=== PATIENT | female | born 1945 | race Caucasian/White ===

== ENCOUNTER 2020-10-31 20:15 | Emergency (ER) | payer OTHER ==
[~2020-10-31] VITALS: Ht 162.6 cm; Wt 90.3 kg
[~2020-10-31 20:15] MED LIST: METOPROLOL SUCC50 MG PO; NORCO 5-325 TA1 EACH PO; NORVASC5 MG PO
[2020-10-31] MEDS ORDERED: XARELTO20 MG PO (20:34)
[2020-10-31] MEDS ORDERED: PRINIVIL20 M1 PO (20:35)
[2020-10-31 20:37] LABS: URINE BILIRUBIN NEGATIVE (Negative); URINE BLOOD NEGATIVE (Negative); URINE CLARITY CLEAR; URINE COLOR YELLOW; URINE GLUCOSE-RANDOM* NEGATIVE (Negative); URINE KETONES NEGATIVE (Negative); URINE LEUKOCYTES-REFLEX TRACE (Negative); URINE NITRITE-REFLEX NEGATIVE (Negative); URINE PROTEIN (DIPSTICK) NEGATIVE (Negative); URINE UROBILINOGEN 0.2 E.U./dl (0.2-1.0)
[2020-10-31] MEDS ORDERED: CLEOCIN HCL300 MG PO (20:59)
[2020-10-31] MEDS ORDERED: NORCO7.5 PO (20:59)
[2020-10-31 21:16] VITALS: BP 157/77
--- NOTE | 2020-11-01 07:14 | EKG ---
[address] [address] ELECTROCARDIOGRAM REPORT Name: LEDAJAYYBRANDI GAUTAM Room #: DEP [facility]#: [id number] Admission: 10/31/20 Attend Phys: Discharge: 10/31/20 Date of : 49 Report #: [id number] [facility] ED Test Date: 2020-10-31 Test Time: 20:33:02 Pat Name: JAYY TOMPKINS Department: Room: Gender: F Message Broker Developer: JOAQUIN : 1945 Requested By: Ruddy Andrade Order Number: [id number] MD: Bart Garcia Measurements Intervals [place] Rate: 79 P: 53 [place]: 150 QRS: -25 QRSD: 90 T: 25 QT: 359 QTc: 412 Interpretive Statements Sinus rhythm Inferior infarct, old No previous ECG available for comparison Electronically Signed On 11-01-2020 7:14:41 CDT by Bart Garcia [email or web address] <ELECTRONICALLY SIGNED> By: Bart Garcia MD, [facility] 11/01/20 0714 32 32 Bart Garcia MD, FACC /EPI
== END 2020-10-31 21:10 | disposition home or self-care (01) ==
LOC: ER 20:15
PROVIDERS: Emergency Medicine
DX: K04.7 Periapical abscess without sinus (principal); H92.01 Otalgia, right ear; R35.0 Frequency of micturition; L98.9 Disorder of the skin and subcutaneous tissue, unspecified; I10 Essential (primary) hypertension; Z86.718 Personal history of other venous thrombosis and embolism; Z90.49 Acquired absence of other specified parts of digestive tract; Z79.899 Other long term (current) drug therapy; Z91.048 Other nonmedicinal substance allergy status; Z88.2 Allergy status to sulfonamides